=== PATIENT | female | born 1975 | race Caucasian/White ===

== ENCOUNTER 2024-12-16 10:40 | Emergency (ER) | payer OTHER ==
[~2024-12-16] VITALS: Ht 165.1 cm; Wt 71.4 kg
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
[2024-12-16] MEDS ORDERED: RISPERIDONE1 MG PO (11:04)
[2024-12-16] MEDS ORDERED: METHADOSE10 MG/1 ML PO (11:05)
[2024-12-16 12:58] VITALS: BP 143/91
== END 2024-12-16 13:00 | disposition home or self-care (01) ==
LOC: ED 10:40
DX: R23.4 Changes in skin texture (principal); Z88.8 Allergy status to other drugs, medicaments and biological substances
CPT/HCPCS: 99283

== ENCOUNTER 2025-04-03 10:33 | Emergency (ER) | payer OTHER ==
[~2025-04-03] VITALS: Ht 165.1 cm; Wt 70.0 kg
[~2025-04-03 10:33] MED LIST: METHADOSE10 MG/1 ML PO; RISPERIDONE1 MG PO
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
[2025-04-03] MEDS ORDERED: RISPERDAL1 MG PO (11:00)
[2025-04-03] MEDS ORDERED: IBUPROFEN 600 MG TAB PO ONE (11:00)
[2025-04-03] MEDS ORDERED: CLEOCIN HCL300 MG PO (11:00)
[2025-04-03] MEDS ORDERED: ALPRAZOLAM1 MG PO (11:01)
[2025-04-03] MEDS ORDERED: RISPERIDONE2 MG PO (11:01)
[2025-04-03] MEDS ORDERED: SERTRALINE HCL50 MG PO (11:01)
[2025-04-03] MEDS ORDERED: ACETAMINOPHEN 325 MG TAB PO ONE (11:15)
[2025-04-03] MEDS ORDERED: ANTIBIOTIC OINT28 GM TOP (11:16)
== END 2025-04-03 11:22 | disposition home or self-care (01) ==
LOC: ED 10:33
DX: S81.851A Open bite, right lower leg, initial encounter (principal); W54.0XXA Bitten by dog, initial encounter; Z88.0 Allergy status to penicillin; Z88.2 Allergy status to sulfonamides; Z79.899 Other long term (current) drug therapy
CPT/HCPCS: 99283; A9270